=== PATIENT | female | born 1990 | race Hispanic/Latino ===

== ENCOUNTER 2021-01-17 14:19 | Outpatient (CLI) | payer BC | END 2021-01-17 14:20 | disposition home or self-care (01) | LOC: SCSRAD 14:19 | PROVIDERS: ATTEND Family Medicine | DX: S69.91XA Unspecified injury of right wrist, hand and finger(s), initial encounter (principal) ==

== ENCOUNTER 2023-05-27 08:57 | Outpatient (CLI) | payer BC | END 2023-05-27 08:58 | disposition home or self-care (01) | LOC: SCSRAD 08:57 | PROVIDERS: ATTEND Family Medicine | DX: R05.3 Chronic cough (principal) | CPT/HCPCS: 71046 ==